=== PATIENT | female | born 1990 | race Caucasian/White ===

== ENCOUNTER 2017-01-09 12:58 | Inpatient (IN) | payer OTHER ==
[~2017-01-09] VITALS: Ht 170.1 cm; Wt 65.4 kg
[2017-01-09] MEDS ORDERED: EFFEXOR XR75 M1 PO (13:39)
[2017-01-09 13:45] VITALS: BP 144/96
[2017-01-09 14:05] LABS: BASO % 0.6 % (0.0-1.0); EOS # 0.2 10*3/uL (0.0-0.4); EOS % 2.5 % (1.0-4.0); HEMATOCRIT 40.1 % (37.0-47.0); HEMOGLOBIN 13.5 g/dl (12.0-16.0); LYMPH # 3.2 10*3/uL (1.3-4.4); LYMPH % 46.5 % (27.0-41.0); MEAN CELL VOLUME 91.1 fl (81.0-99.0); MEAN CORPUSCULAR HGB 30.7 pg (27.0-31.0); MEAN CORPUSCULAR HGB CONC 33.7 g/dl (33.0-37.0); MEAN PLATELET VOLUME 8.7 fl (9.6-12.3); MONO # 0.4 10*3/uL (0.1-1.0); NEUT % 44.3 % (47.0-73.0); PLATELET COUNT AUTOMATED 246 10*3/uL (130-400); RED CELL DISTRI WIDTH 12.4 % (0-14.5); WHITE BLOOD COUNT 6.8 10*3/uL (4.8-10.8)
[2017-01-09 14:07] LABS: BILIRUBIN 1+ (NEGATIVE); BLOOD NEGATIVE (NEGATIVE); CLARITY SL CLOUDY (CLEAR); COLOR YELLOW (YELLOW); GLUCOSE NEGATIVE (NEGATIVE); KETONE TRACE (NEGATIVE); LEUKO ESTERASE NEGATIVE (NEGATIVE); NITRITE NEGATIVE (NEGATIVE); PH 5.5 (5.0-9.0); PROTEIN NEGATIVE (NEGATIVE); SPECIFIC GRAVITY >= 1.030 (1.005-1.030)
[2017-01-09 14:11] LABS: URINE AMPHETAMINES < 1000 (1000ng/ml); URINE BARBITURATES < 200 (200ng/ml); URINE COCAINE < 300 (300ng/ml)
[2017-01-09 14:13] LABS: INTERNATIONAL NORM RATIO 1.1 (2.0-3.5); PROTHROMBIN TIME 11.5 SECONDS (9.0-12.4)
[2017-01-09 14:19] LABS: ALBUMIN 3.8 gm/dl (3.1-4.5); ALKALINE PHOSPHATASE 70 U/L (45-117); BILIRUBIN, TOTAL 0.3 mg/dl (0.2-1.0); BUN 7 mg/dl (7-24); CARBON DIOXIDE 26 mmol/L (21-32); CHLORIDE 105 mmol/L (98-107); EST GLOM FILT AFRICAN AMERICAN > 60 ml/min; GLUCOSE 90 mg/dL (65-99); POTASSIUM 3.7 mmol/L (3.5-5.1); SGOT/AST 23 IU/L (3-35); SGPT/ALT 59 U/L (12-78); SODIUM 138 mmol/L (136-145); TOTAL PROTEIN 7.7 gm/dL (6.4-8.2)
[2017-01-09 14:19] LABS: CALCIUM OXALATE CRYSTALS 1+; MUCOUS TRACE; URINE REFLEX COMMENT NO (NO)
[2017-01-09 16:00] VITALS: BP 119/71; BP 152/93
[2017-01-09 20:00] VITALS: BP 134/84
[2017-01-10] VITALS: BP 129/78
[2017-01-10 04:00] VITALS: BP 128/84
[2017-01-10 07:46] LABS: HEPATITIS C VIRUS ANTIBODY >11.0 s/co (0.0-0.9)
[2017-01-10 08:00] VITALS: BP 140/88
== END 2017-01-10 12:14 | disposition left against medical advice (07) | DRG 894 ==
LOC: 4E 12:58
PROVIDERS: Internal Medicine
DX: F11.23 Opioid dependence with withdrawal (principal); F33.9 Major depressive disorder, recurrent, unspecified; B19.9 Unspecified viral hepatitis without hepatic coma; F12.10 Cannabis abuse, uncomplicated; B18.2 Chronic viral hepatitis C; F17.200 Nicotine dependence, unspecified, uncomplicated; Z53.21 Procedure and treatment not carried out due to patient leaving prior to being seen by health care provider; Z71.6 Tobacco abuse counseling; Z79.899 Other long term (current) drug therapy

== ENCOUNTER 2017-12-13 14:43 | Inpatient (IN) | payer OTHER ==
[~2017-12-13] VITALS: Ht 170.2 cm; Wt 71.3 kg
[~2017-12-13 14:43] MED LIST: EFFEXOR XR75 M1 PO
[2017-12-13 16:00] VITALS: BP 134/83
[2017-12-13 16:32] LABS: BASO % 0.5 % (0.0-1.0); EOS # 0.2 10*3/uL (0.0-0.4); EOS % 3.2 % (1.0-4.0); HEMATOCRIT 40.8 % (37.0-47.0); HEMOGLOBIN 13.4 g/dl (12.0-16.0); LYMPH # 2.8 10*3/uL (1.3-4.4); LYMPH % 42.5 % (27.0-41.0); MEAN CELL VOLUME 92.7 fl (81.0-99.0); MEAN CORPUSCULAR HGB 30.5 pg (27.0-31.0); MEAN CORPUSCULAR HGB CONC 32.8 g/dl (33.0-37.0); MEAN PLATELET VOLUME 9.4 fl (9.6-12.3); MONO # 0.5 10*3/uL (0.1-1.0); MONO % 7.2 % (3.0-9.0); NEUT % 46.4 % (47.0-73.0); PLATELET COUNT AUTOMATED 268 10*3/uL (130-400); RED CELL DISTRI WIDTH 12.5 % (0-14.5); WHITE BLOOD COUNT 6.5 10*3/uL (4.8-10.8)
[2017-12-13 16:48] LABS: ALBUMIN 3.8 gm/dl (3.1-4.5); ALKALINE PHOSPHATASE 68 U/L (45-117); BUN 4 mg/dl (7-24); CHLORIDE 102 mmol/L (98-107); CREATININE 0.74 mg/dL (0.55-1.02); ETHYL ALCOHOL < 3.0 mg/dl (<3); POTASSIUM 3.9 mmol/L (3.5-5.1); SGOT/AST 28 IU/L (3-35); SGPT/ALT 48 U/L (12-78); SODIUM 139 mmol/L (136-145)
[2017-12-13 16:58] LABS: BETA-HCG, QUANT < 1.0 mIU/mL (1-3)
[2017-12-13 17:27] LABS: BILIRUBIN NEGATIVE (NEGATIVE); BLOOD NEGATIVE (NEGATIVE); CLARITY SL CLOUDY (CLEAR); COLOR YELLOW (YELLOW); GLUCOSE NEGATIVE (NEGATIVE); KETONE NEGATIVE (NEGATIVE); LEUKO ESTERASE NEGATIVE (NEGATIVE); NITRITE NEGATIVE (NEGATIVE); PH 7.5 (5.0-9.0); UROBILINOGEN 0.2 E.U./dl (0.2-1.0)
[2017-12-13 17:36] LABS: BACTERIA 4+; RBC 0-2 rbc/hpf (0-2); URINE AMPHETAMINES < 1000 (1000ng/ml); URINE BARBITURATES < 200 (200ng/ml); URINE BENZODIAZEPINES < 200 (200ng/ml); URINE CANNABINOIDS (THC) > 50 (50ng/ml); URINE COCAINE > 300 (300ng/ml); URINE METHADONE < 300 (300ng/ml); URINE OPIATES > 300 (300ng/ml)
[2017-12-13 17:37] LABS: URINE PHENCYCLIDINE < 25 (25ng/ml)
[2017-12-13 20:00] VITALS: BP 112/89
[2017-12-14] VITALS: BP 121/66
[2017-12-14 04:00] VITALS: BP 108/69
[2017-12-14 08:00] VITALS: BP 115/64
[2017-12-14 12:00] VITALS: BP 120/63
== END 2017-12-14 13:25 | disposition left against medical advice (07) | DRG 894 ==
LOC: 5E 14:43
PROVIDERS: Registered Nurse
DX: F11.23 Opioid dependence with withdrawal (principal); B19.20 Unspecified viral hepatitis C without hepatic coma; Z53.21 Procedure and treatment not carried out due to patient leaving prior to being seen by health care provider; F12.10 Cannabis abuse, uncomplicated; F32.9 Major depressive disorder, single episode, unspecified; Z79.899 Other long term (current) drug therapy; Z72.0 Tobacco use; Z71.6 Tobacco abuse counseling